=== PATIENT | female | born 1990 | race American Indian/Alaskan Native ===

== ENCOUNTER 2016-09-14 14:35 | Emergency (ER) | payer SELFPAY ==
[2016-09-14 14:59] VITALS: TEMP 98.5; O2SAT 100
[2016-09-14 15:30] LABS: BASO # 0.1 K/uL (0.0-0.2); BASO % 0.8 % (0.0-2.0); EOS # 0.4 K/uL (0.0-0.7); EOS % 4.6 % (0.0-4.0); HEMOGLOBIN 11.9 g/dL (11.0-16.0); LYMPH # 1.9 K/uL (1.0-4.3); LYMPH % 24.3 % (20.0-40.0); MEAN CELL VOLUME 87.8 fL (81.0-99.0); MEAN CORPUSCULAR HEMOGLOBIN 29.2 pg (27.0-31.0); MEAN CORPUSCULAR HGB CONC 33.3 g/dL (33.0-37.0); MEAN PLATELET VOLUME 7.4 fL (7.2-11.7); MONO # 0.6 K/uL (0.0-0.8); MONO % 7.5 % (0.0-10.0); NEUT % 62.8 % (50.0-75.0); NRBC % 0.1 % (0.0-2.0); RBC 4.08 Mil/uL (3.80-5.20); RED CELL DISTRIBUTION WIDTH 14.1 % (11.5-14.5); WHITE BLOOD COUNT 7.9 K/uL (4.8-10.8)
[2016-09-14 15:42] LABS: GFR AFRICAN-AMERICAN > 60; GFR NON-AFRICAN AMERICAN > 60
[2016-09-14 15:43] LABS: ALB/GLOB RATIO 1.1 (1.0-2.1); ALT/SGPT 28 U/L (9-52); AST/SGOT 21 U/L (14-36); BLOOD UREA NITROGEN 12 mg/dL (7-17); CALCIUM 8.8 mg/dl (8.6-10.4)
[2016-09-14 15:55] LABS: HCG,QUALITATIVE URINE NEGATIVE (NEGATIVE)
[2016-09-14 15:59] LABS: ALBUMIN 3.5 g/dL (3.5-5.0)
[2016-09-14 16:04] LABS: BARBITURATES, UR NEGATIVE (NEGATIVE)
[2016-09-14 16:05] LABS: BENZODIAZEPINES, UR NEGATIVE (NEGATIVE)
[2016-09-14 16:09] LABS: OPIATES, UR NEGATIVE (NEGATIVE)
[2016-09-14 16:10] LABS: PHENCYCLIDINE, UR NEGATIVE (NEGATIVE)
[2016-09-14 16:20] LABS: SQUAMOUS EPITHIAL < 1 /hpf (0-5); URINE BACTERIA RARE (<OCC); URINE BILIRUBIN NEGATIVE (NEGATIVE); URINE BLOOD NEGATIVE (NEGATIVE); URINE CLARITY Clear (Clear); URINE COLOR Yellow (YELLOW); URINE GLUCOSE (UA) NORMAL (Normal); URINE HYALINE CAST 0-2 /lpf (0-2); URINE LEUKOCYTE ESTERASE NEG Leu/uL (Negative); URINE NITRATE NEGATIVE (NEGATIVE); URINE PROTEIN 1+ mg/dL (NEGATIVE)
[2016-09-14] MEDS ORDERED: Potassium Chloride 20 mEq ER Tab PO STA (16:34)
[2016-09-14] MEDS ORDERED: Potassium Chloride 20 mEq ER Tab PO ONE ×3 (17:16→17:23)
--- NOTE | 2016-09-14 17:37 | C.PDOC ---
History Of Present Illness Pt was BIBEMS because she was apparently acting strangely in public. Time Seen by Provider: 09/14/16 14:40 Chief Complaint (Nursing): Psychiatric Evaluation History Per: Patient, EMS Onset/Duration Of Symptoms: Unknown (today?) Current Symptoms Are (Timing): Better Suicide/Self Injury Attempted (Context): None Severity: Moderate Associated Symptoms: Anxiety. denies: Suicidal Thoughts, Suicidal Plan Additional History Per: Prior Records Past Medical History Reviewed: Historical Data, Nursing Documentation, Vital Signs Vital Signs: Last Vital Signs Temp 98.5 F 09/14/16 14:40 Pulse 92 H 09/14/16 14:40 Resp 18 09/14/16 14:40 BP 104/60 09/14/16 14:40 Pulse Ox 100 09/14/16 14:40 - Medical History PMH: No Chronic Diseases Surgical History: Back Surgery (For Scoliosis as a child) Family History: States: Unknown Family Hx - Social History Hx Tobacco Use: No Hx Alcohol Use: No (PT DENIES) Hx Substance Use: No (PT DENIES) - Immunization History Hx Tetanus Toxoid Vaccination: No Hx Influenza Vaccination: No Hx Pneumococcal Vaccination: No Review Of Systems Except As Marked, All Systems Reviewed And Found Negative. Constitutional: Negative for: Fever, Weakness Cardiovascular: Negative for: Chest Pain Respiratory: Negative for: Shortness of Breath Gastrointestinal: Negative for: Vomiting, Abdominal Pain, Diarrhea Genitourinary: Negative for: Dysuria Musculoskeletal: Negative for: Neck Pain Skin: Negative for: Rash Neurological: Negative for: Weakness, Numbness, Seizures Psych: Positive for: Anxiety. Negative for: Psychosis Physical Exam - Physical Exam Appears: Non-toxic, No Acute Distress Skin: Normal Color, Warm, Dry, No Rash Head: Atraumatic, Normacephalic Eye(s): bilateral: Normal Inspection, PERRL, EOMI Neck: Normal ROM, Supple Cardiovascular: Rhythm Regular Respiratory: Normal Breath Sounds, No Accessory Muscle Use Gastrointestinal/Abdominal: Soft, No Tenderness Back: No CVA Tenderness Extremity: Normal ROM, No Deformity Neurological/Psych: Oriented x3, Normal Speech, Normal Motor, Normal Sensation ED Course And Treatment - Laboratory Results Result Diagrams: 09/14/16 15:26 09/14/16 15:26 Interpretation Of Abnormal: Mild hypokalemia, otherwise unremarkable. Urine POC: Negative O2 Sat by Pulse Oximetry: 100 Pulse Ox Interpretation: Normal Progress Note: Pt was evaluated by the industrial workers who d/w the psychiatrist saturation equipment operator. They psychiatrically cleared pt for discharge. Pt states she feels fine and wants to leave. Reassessment Condition: Improved Disposition Counseled Patient/Family Regarding: Studies Performed, Diagnosis, Need For Followup - Disposition Referrals: [facility] [Outside] Disposition: HOME/ ROUTINE Disposition Time: 17:38 Condition: STABLE Additional Instructions: Avoid alcohol. Follow up with your doctor or in the clinic. Return to the ER if you develop suicidal or homicidal thoughts, worsening of symptoms or if you have any other concerns. Forms: General Discharge Instructions - Clinical Impression Clinical Impression: Psychiatric exam requested by authority
[2016-09-14 17:52] VITALS: BP 117/70; PULSE 85; RESP 16
== END 2016-09-14 17:55 | disposition home or self-care (01) ==
LOC: C.ER 14:35
DX: Z04.6 Encounter for general psychiatric examination, requested by authority (principal); E87.6 Hypokalemia
CPT/HCPCS: 80053; 81001; 84703; 85025; 99284; G0480